=== PATIENT | female | born 1930 | race Caucasian/White ===

== ENCOUNTER 2020-07-28 11:12 | Inpatient (IN) | payer OTHER ==
[2020-07-28] MEDS ORDERED: LACTATED RINGERS SOLUTION 1000 ML INFUS.BAG IV ONE ×3 (12:01→14:26)
[2020-07-28] MEDS ORDERED: ACETAMINOPHEN 1000 MG/100 ML VIAL (NON FORMULARY) IVPB ONE (12:01)
[2020-07-28] MEDS ORDERED: ACETAMINOPHEN INJECTION 100 ML IVPB ONE (12:19)
[2020-07-28 12:35] LABS: BASO % 0.3 % (0-2.0); HEMATOCRIT 24.1 % (32.4-45.2); HEMOGLOBIN 7.6 GM/dL (10.7-15.3); LYMPH % 2.9 % (8-40); MCH 29.5 pg (25.7-33.7); MCHC 31.4 g/dl (32.0-36.0); MEAN CELL VOLUME 93.9 fl (80-96); MEAN PLT VOLUME 8.2 fl (7.5-11.1); MONO % 3.1 % (3.8-10.2); NEUT % 93.7 % (42.8-82.8); PLATELET COUNT 248 K/MM3 (134-434); RBC 2.57 M/mm3 (3.60-5.2); RDW 13.9 % (11.6-15.6); WHITE BLOOD COUNT 25.1 K/mm3 (4.0-10.0)
[2020-07-28 12:38] LABS: EPI CELLS 7 /uL (0-25.1); HYALINE CASTS 1 /uL (0-3.1); PH,URINE 7.5 (5.0-8.0); URINE APPEARANCE CLOUDY; URINE BACTERIA >9,000 /uL (0-1359); URINE BILIRUBIN NEGATIVE (NEGATIVE); URINE COLOR YELLOW; URINE GLUCOSE (UA) NEGATIVE (NEGATIVE); URINE KETONE NEGATIVE (NEGATIVE); URINE LEUK ESTERASE 2+ (NEGATIVE); URINE NITRITE NEGATIVE (NEGATIVE); URINE PROTEIN TRACE (NEGATIVE); URINE RBC 8 /uL (0-23.9); URINE WBC 376 /uL (0-25.8)
[2020-07-28 12:42] LABS: INR 1.13 (0.83-1.09); PROTHROMBIN TIME (PATIENT) 13.8 SEC (9.7-13.0)
[2020-07-28 12:45] LABS: ACTIVATED PTT 31.1 SECONDS (25.2-36.5)
[2020-07-28 12:50] LABS: POTASSIUM 5.1 mmol/L (3.5-5.1)
[2020-07-28 12:52] LABS: BLOOD UREA NITROGEN 40.4 mg/dL (7-18); CALCIUM 7.4 mg/dL (8.5-10.1)
[2020-07-28 12:56] LABS: CREATININE 1.9 mg/dL (0.55-1.3)
[2020-07-28 12:57] LABS: BILIRUBIN,TOTAL 1.5 mg/dL (0.2-1); TOT PROT 5.8 g/dl (6.4-8.2)
[2020-07-28] MEDS ORDERED: PIPERACILLIN/TAZOB 4.5 GM 4.5 GM in DEXTROSE 5%-WATER 100 ML IVPB ONE (13:11)
[2020-07-28] MEDS ORDERED: VANCOMYCIN 1 GM in D5W (PRE-DOCKED) 1,000 MG/250 ML IVPB ONE (13:13)
[2020-07-28] MEDS ORDERED: AZITHROMYCIN IVPB 500 MG in DEXTROSE 5%-WATER - 250 ML IVPB ONE (13:13)
[2020-07-28] MEDS ORDERED: PIPERACILLIN/TAZOB 4.5 GM 4.5 GM/100 ML BAG IVPB ONE (13:34)
[2020-07-28 13:46] LABS: ANISOCYTOSIS 0; MACROCYTOSIS 0; PLATELET ESTIMATE NORMAL
[2020-07-28] MEDS ORDERED: VANCOMYCIN 1 GRAM (PRE-DOCKED) 1,000 MG/250 ML BAG IVPB ONE (14:20)
[2020-07-28] MEDS ORDERED: AZITHROMYCIN IVPB 500 MG/250 ML BAG IVPB ONE (14:20)
[2020-07-28] MEDS ORDERED: VANCOMYCIN 2,000 MG in DEXTROSE 5%-WATER - 250 ML IVPB ONE (14:25)
[2020-07-28] MEDS ORDERED: VANCOMYCIN 500 MG VIAL (RESTRICTED TO ID ONLY) ONE (15:10)
[2020-07-28] MEDS ORDERED: VASOPRESSIN 20 UNITS/ML VIAL IV ONE ×2 (15:49→16:01)
[2020-07-28] MEDS: VASOPRESSIN 40 UNITS in SODIUM CHLORIDE 98 ML IVPB SCH (16:22)
[2020-07-28] MEDS ORDERED: TRIPLE LUMEN FLUSH 4 ML ML IVPUSH PRN (19:02)
[2020-07-29] MEDS ORDERED: PIPERACILLIN/TAZOBACTAM 2.25 GM VIAL IVPB ONE ×4 (04:16→20:09)
[2020-07-29] MEDS ORDERED: DEXTROSE 5%-WATER - 50 ML IVPB ONE ×4 (04:16→20:09)
[2020-07-29] MEDS: PIPERACILLIN/TAZOB 2.25 GM 2.25 GM in DEXTROSE 5%-WATER - 50 ML IVPB SCH ×4 (04:18→20:23)
[2020-07-29 04:23] LABS: BASO % 0.4 % (0-2.0); EOS % 0.5 % (0-4.5); HEMATOCRIT 21.1 % (32.4-45.2); LYMPH % 9.9 % (8-40); MCH 30.2 pg (25.7-33.7); MCHC 31.8 g/dl (32.0-36.0); MEAN PLT VOLUME 8.6 fl (7.5-11.1); MONO % 5.4 % (3.8-10.2); NEUT % 83.8 % (42.8-82.8); PLATELET COUNT 189 K/MM3 (134-434); RBC 2.22 M/mm3 (3.60-5.2); RDW 13.8 % (11.6-15.6); WHITE BLOOD COUNT 14.5 K/mm3 (4.0-10.0)
[2020-07-29 04:27] LABS: HEMOGLOBIN 6.7 GM/dL (10.7-15.3)
[2020-07-29 04:30] LABS: POTASSIUM 4.9 mmol/L (3.5-5.1)
[2020-07-29 04:32] LABS: CALCIUM 7.3 mg/dL (8.5-10.1)
[2020-07-29 04:33] LABS: ALBUMIN 1.7 g/dl (3.4-5.0); BLOOD UREA NITROGEN 34.2 mg/dL (7-18); MAGNESIUM 1.9 mg/dL (1.8-2.4)
[2020-07-29 04:36] LABS: CREATININE 1.6 mg/dL (0.55-1.3); PHOSPHOROUS 4.1 mg/dL (2.5-4.9)
[2020-07-29 04:37] LABS: BILIRUBIN,TOTAL 1.1 mg/dL (0.2-1)
[2020-07-29 04:38] LABS: TOT PROT 5.2 g/dl (6.4-8.2)
[2020-07-29] MEDS ORDERED: NOREPINEPHRINE BITARTRATE 8,000 MCG/500 ML BAG IVPB ONE (04:47)
[2020-07-29] MEDS ORDERED: NOREPINEPHRINE D5W PREMIX 16,000 MCG/500 ML BAG IVPB ONE (04:49)
[2020-07-29] MEDS: SODIUM CHLORIDE 1,000 ML IV SCH (08:52)
[2020-07-29] MEDS: PANTOPRAZOLE SODIUM 40 MG VIAL IVPUSH SCH (09:28)
[2020-07-29] MEDS: ACETAMINOPHEN 325 MG TABLET (FP) PO PRN ×2 (10:31→17:19)
[2020-07-29] MEDS ORDERED: SODIUM CHLORIDE 500 ML IV STA (11:56)
[2020-07-29] MEDS: NOREPINEPHRINE BITARTRATE 16,000 MCG in SODIUM CHLORIDE 484 ML IV SCH (20:04)
[2020-07-29] MEDS: VASOPRESSIN 40 UNITS in SODIUM CHLORIDE 98 ML IVPB SCH (20:05)
[2020-07-29 20:59] LABS: BASO % 0.5 % (0-2.0); EOS % 1.7 % (0-4.5); HEMATOCRIT 26.2 % (32.4-45.2); HEMOGLOBIN 8.2 GM/dL (10.7-15.3); LYMPH % 12.9 % (8-40); MCH 29.6 pg (25.7-33.7); MCHC 31.4 g/dl (32.0-36.0); MEAN CELL VOLUME 94.3 fl (80-96); MONO % 7.4 % (3.8-10.2); NEUT % 77.5 % (42.8-82.8); PLATELET COUNT 196 K/MM3 (134-434); RBC 2.78 M/mm3 (3.60-5.2); RDW 15.1 % (11.6-15.6); WHITE BLOOD COUNT 12.8 K/mm3 (4.0-10.0)
[2020-07-30] MEDS ORDERED: DEXTROSE 5%-WATER - 50 ML IVPB ONE ×3 (00:22→14:34)
[2020-07-30] MEDS ORDERED: PIPERACILLIN/TAZOBACTAM 2.25 GM VIAL IVPB ONE ×3 (00:22→14:34)
[2020-07-30] MEDS: PIPERACILLIN/TAZOB 2.25 GM 2.25 GM in DEXTROSE 5%-WATER - 50 ML IVPB SCH ×3 (03:00→14:36)
[2020-07-30 07:53] LABS: BASO % 0.5 % (0-2.0); EOS % 1.8 % (0-4.5); HEMATOCRIT 24.6 % (32.4-45.2); HEMOGLOBIN 8.1 GM/dL (10.7-15.3); LYMPH % 12.3 % (8-40); MCH 30.4 pg (25.7-33.7); MCHC 32.9 g/dl (32.0-36.0); MEAN CELL VOLUME 92.4 fl (80-96); MEAN PLT VOLUME 8.8 fl (7.5-11.1); MONO % 6.4 % (3.8-10.2); PLATELET COUNT 206 K/MM3 (134-434); RBC 2.66 M/mm3 (3.60-5.2); RDW 15.2 % (11.6-15.6); WHITE BLOOD COUNT 12.8 K/mm3 (4.0-10.0)
[2020-07-30 07:56] LABS: INR 1.11 (0.83-1.09); PROTHROMBIN TIME (PATIENT) 13.4 SEC (9.7-13.0)
[2020-07-30 07:57] LABS: ACTIVATED PTT 29.6 SECONDS (25.2-36.5)
[2020-07-30 08:10] LABS: POTASSIUM 4.2 mmol/L (3.5-5.1)
[2020-07-30 08:15] LABS: ALBUMIN 1.8 g/dl (3.4-5.0); BLOOD UREA NITROGEN 27.9 mg/dL (7-18); CALCIUM 7.3 mg/dL (8.5-10.1)
[2020-07-30 08:18] LABS: CREATININE 1.3 mg/dL (0.55-1.3)
[2020-07-30 08:20] LABS: TOT PROT 5.4 g/dl (6.4-8.2)
[2020-07-30] MEDS: ACETAMINOPHEN 325 MG TABLET (FP) PO PRN ×2 (08:42→17:06)
[2020-07-30] MEDS: PANTOPRAZOLE SODIUM 40 MG VIAL IVPUSH SCH (10:50)
[2020-07-30 13:14] VITALS: BMI 34.1
[2020-07-30] MEDS ORDERED: SODIUM CHLORIDE 1,000 ML IV SCH (13:38)
[2020-07-30] MEDS: ERTAPENEM SODIUM 1 GM in SODIUM CHLORIDE 50 ML IVPB SCH (17:06)
[2020-07-30] MEDS: NOREPINEPHRINE BITARTRATE 16,000 MCG in SODIUM CHLORIDE 484 ML IV SCH (21:09)
[2020-07-30] MEDS: VASOPRESSIN 40 UNITS in SODIUM CHLORIDE 98 ML IVPB SCH (21:09)
[2020-07-30] MEDS: SODIUM CHLORIDE 1,000 ML IV SCH (21:09)
[2020-07-31 07:16] LABS: BASO % 0.7 % (0-2.0); HEMATOCRIT 29.7 % (32.4-45.2); HEMOGLOBIN 9.6 GM/dL (10.7-15.3); LYMPH % 9.7 % (8-40); MCH 29.8 pg (25.7-33.7); MCHC 32.4 g/dl (32.0-36.0); MEAN PLT VOLUME 8.4 fl (7.5-11.1); MONO % 5.8 % (3.8-10.2); NEUT % 82.8 % (42.8-82.8); PLATELET COUNT 289 K/MM3 (134-434); RBC 3.22 M/mm3 (3.60-5.2); RDW 15.1 % (11.6-15.6); WHITE BLOOD COUNT 11.8 K/mm3 (4.0-10.0)
[2020-07-31 07:21] LABS: POTASSIUM 3.8 mmol/L (3.5-5.1)
[2020-07-31 07:25] LABS: ALBUMIN 2.3 g/dl (3.4-5.0); BLOOD UREA NITROGEN 19.5 mg/dL (7-18); CALCIUM 7.6 mg/dL (8.5-10.1); MAGNESIUM 1.9 mg/dL (1.8-2.4)
[2020-07-31 07:28] LABS: CREATININE 1.2 mg/dL (0.55-1.3); PHOSPHOROUS 2.9 mg/dL (2.5-4.9)
[2020-07-31 07:30] LABS: TOT PROT 6.2 g/dl (6.4-8.2)
[2020-07-31] MEDS ORDERED: PT OWN MED DRAWER 7, Y5N ONE ×2 (09:37→17:07)
[2020-07-31] MEDS: ERTAPENEM SODIUM 1 GM in SODIUM CHLORIDE 50 ML IVPB SCH (09:39)
[2020-07-31] MEDS: ACETAMINOPHEN 325 MG TABLET (FP) PO PRN (09:41)
[2020-07-31] MEDS: PANTOPRAZOLE SODIUM 40 MG VIAL IVPUSH SCH (09:43)
[2020-07-31 10:59] LABS: ANISOCYTOSIS 0; MACROCYTOSIS 0; PLATELET ESTIMATE NORMAL; ROULEAU 1+
[2020-07-31] MEDS: NOREPINEPHRINE BITARTRATE 16,000 MCG in SODIUM CHLORIDE 484 ML IV SCH (16:05)
[2020-07-31] MEDS: IRON POLYSACCHARIDES 150 MG CAPSULE PO SCH (18:33)
[2020-07-31] MEDS: SENNOSIDES 8.6MG TABLET (FP) PO SCH (21:02)
[2020-08-01] MEDS: LEVOTHYROXINE NA 25 MCG TABLET (FP) PO SCH (06:00)
[2020-08-01] MEDS: ACETAMINOPHEN 325 MG TABLET (FP) PO PRN ×2 (06:00→20:17)
[2020-08-01 08:31] LABS: POTASSIUM 4.4 mmol/L (3.5-5.1)
[2020-08-01 08:35] LABS: CALCIUM 7.8 mg/dL (8.5-10.1)
[2020-08-01 08:36] LABS: BASO % 0.7 % (0-2.0); BLOOD UREA NITROGEN 13.2 mg/dL (7-18); EOS % 3.5 % (0-4.5); HEMATOCRIT 29.2 % (32.4-45.2); HEMOGLOBIN 9.6 GM/dL (10.7-15.3); LYMPH % 17.4 % (8-40); MCH 30.6 pg (25.7-33.7); MCHC 32.9 g/dl (32.0-36.0); MEAN CELL VOLUME 93.1 fl (80-96); MEAN PLT VOLUME 8.6 fl (7.5-11.1); MONO % 9.3 % (3.8-10.2); NEUT % 69.1 % (42.8-82.8); PLATELET COUNT 321 K/MM3 (134-434); RBC 3.14 M/mm3 (3.60-5.2); RDW 14.7 % (11.6-15.6); WHITE BLOOD COUNT 8.7 K/mm3 (4.0-10.0)
[2020-08-01 08:40] LABS: TOT PROT 5.7 g/dl (6.4-8.2)
[2020-08-01] MEDS: PANTOPRAZOLE SODIUM 40 MG VIAL IVPUSH SCH (09:17)
[2020-08-01] MEDS: IRON POLYSACCHARIDES 150 MG CAPSULE PO SCH (09:17)
[2020-08-01] MEDS ORDERED: ENOXAPARIN NA (PORCINE) 40 MG/0.4 ML DISP.SYRIN SQ SCH (10:00)
[2020-08-01 11:03] LABS: ANISOCYTOSIS 1+; MACROCYTOSIS 0; OVALOCYTE 1+; PLATELET ESTIMATE NORMAL
[2020-08-01] MEDS: ERTAPENEM SODIUM 1 GM in SODIUM CHLORIDE 50 ML IVPB SCH (12:09)
[2020-08-01] MEDS: ENOXAPARIN NA (PORCINE) 100 MG/1 ML DISP.SYRIN SQ SCH (20:17)
[2020-08-01] MEDS: SENNOSIDES 8.6MG TABLET (FP) PO SCH (21:10)
[2020-08-02] MEDS: LEVOTHYROXINE NA 25 MCG TABLET (FP) PO SCH (06:11)
[2020-08-02] MEDS: IRON POLYSACCHARIDES 150 MG CAPSULE PO SCH (09:46)
[2020-08-02] MEDS: ENOXAPARIN NA (PORCINE) 100 MG/1 ML DISP.SYRIN SQ SCH ×2 (09:46→21:48)
[2020-08-02] MEDS: PANTOPRAZOLE SODIUM 40 MG VIAL IVPUSH SCH (09:46)
[2020-08-02] MEDS: ERTAPENEM SODIUM 1 GM in SODIUM CHLORIDE 50 ML IVPB SCH (09:47)
[2020-08-02 10:08] LABS: BASO % 0.7 % (0-2.0); EOS % 3.1 % (0-4.5); HEMATOCRIT 29.7 % (32.4-45.2); HEMOGLOBIN 9.8 GM/dL (10.7-15.3); LYMPH % 17.3 % (8-40); MCH 30.8 pg (25.7-33.7); MCHC 33.2 g/dl (32.0-36.0); MEAN CELL VOLUME 92.9 fl (80-96); MONO % 6.1 % (3.8-10.2); NEUT % 72.8 % (42.8-82.8); PLATELET COUNT 416 K/MM3 (134-434); RDW 14.4 % (11.6-15.6); WHITE BLOOD COUNT 8.9 K/mm3 (4.0-10.0)
[2020-08-02 10:31] LABS: CALCIUM 8.2 mg/dL (8.5-10.1)
[2020-08-02 10:32] LABS: ALBUMIN 2.3 g/dl (3.4-5.0)
[2020-08-02 10:35] LABS: CREATININE 1.1 mg/dL (0.55-1.3)
[2020-08-02 10:36] LABS: BILIRUBIN,TOTAL 1.3 mg/dL (0.2-1)
[2020-08-02 10:37] LABS: TOT PROT 6.2 g/dl (6.4-8.2)
[2020-08-02 11:35] LABS: ANISOCYTOSIS 1+; MACROCYTOSIS 0; PLATELET ESTIMATE NORMAL
[2020-08-02] MEDS: SENNOSIDES 8.6MG TABLET (FP) PO SCH (21:49)
[2020-08-02] MEDS: ACETAMINOPHEN 325 MG TABLET (FP) PO PRN (21:51)
[2020-08-03] MEDS: LEVOTHYROXINE NA 25 MCG TABLET (FP) PO SCH (06:24)
[2020-08-03] MEDS: ENOXAPARIN NA (PORCINE) 100 MG/1 ML DISP.SYRIN SQ SCH ×2 (08:42→21:23)
[2020-08-03 09:05] LABS: BASO % 1.1 % (0-2.0); EOS % 3.3 % (0-4.5); HEMATOCRIT 30.5 % (32.4-45.2); HEMOGLOBIN 9.9 GM/dL (10.7-15.3); LYMPH % 17.2 % (8-40); MCH 30.6 pg (25.7-33.7); MCHC 32.5 g/dl (32.0-36.0); MEAN PLT VOLUME 7.9 fl (7.5-11.1); MONO % 6.6 % (3.8-10.2); NEUT % 71.8 % (42.8-82.8); PLATELET COUNT 449 K/MM3 (134-434); RBC 3.25 M/mm3 (3.60-5.2); WHITE BLOOD COUNT 8.8 K/mm3 (4.0-10.0)
[2020-08-03 09:25] LABS: POTASSIUM 4.1 mmol/L (3.5-5.1)
[2020-08-03 09:29] LABS: ALBUMIN 2.2 g/dl (3.4-5.0); CALCIUM 7.7 mg/dL (8.5-10.1)
[2020-08-03 09:34] LABS: BILIRUBIN,TOTAL 0.7 mg/dL (0.2-1); TOT PROT 6.3 g/dl (6.4-8.2)
[2020-08-03] MEDS ORDERED: PT OWN MED DRAWER 7, Y5N ONE (09:47)
[2020-08-03] MEDS: IRON POLYSACCHARIDES 150 MG CAPSULE PO SCH (09:50)
[2020-08-03] MEDS: ERTAPENEM SODIUM 1 GM in SODIUM CHLORIDE 50 ML IVPB SCH (09:51)
[2020-08-03] MEDS: PANTOPRAZOLE SODIUM 40 MG VIAL IVPUSH SCH (09:52)
[2020-08-03] MEDS: ACETAMINOPHEN 325 MG TABLET (FP) PO PRN ×2 (16:29→21:29)
[2020-08-03] MEDS: SENNOSIDES 8.6MG TABLET (FP) PO SCH (21:23)
[2020-08-04] MEDS: LEVOTHYROXINE NA 25 MCG TABLET (FP) PO SCH (06:12)
[2020-08-04] MEDS: ACETAMINOPHEN 325 MG TABLET (FP) PO PRN ×3 (07:44→21:59)
[2020-08-04] MEDS: ENOXAPARIN NA (PORCINE) 100 MG/1 ML DISP.SYRIN SQ SCH ×2 (07:44→21:59)
[2020-08-04] MEDS ORDERED: PT OWN MED DRAWER 7, Y5N ONE (09:43)
[2020-08-04] MEDS: IRON POLYSACCHARIDES 150 MG CAPSULE PO SCH (09:46)
[2020-08-04] MEDS: ERTAPENEM SODIUM 1 GM in SODIUM CHLORIDE 50 ML IVPB SCH (09:47)
[2020-08-04] MEDS: PANTOPRAZOLE SODIUM 40 MG VIAL IVPUSH SCH (09:49)
[2020-08-04] MEDS: SENNOSIDES 8.6MG TABLET (FP) PO SCH (21:59)
[2020-08-05] MEDS: LEVOTHYROXINE NA 25 MCG TABLET (FP) PO SCH (06:21)
[2020-08-05] MEDS: ENOXAPARIN NA (PORCINE) 100 MG/1 ML DISP.SYRIN SQ SCH (08:17)
[2020-08-05] MEDS ORDERED: PT OWN MED DRAWER 7, Y5N ONE (09:58)
[2020-08-05] MEDS: ERTAPENEM SODIUM 1 GM in SODIUM CHLORIDE 50 ML IVPB SCH (10:00)
[2020-08-05] MEDS: IRON POLYSACCHARIDES 150 MG CAPSULE PO SCH (10:00)
[2020-08-05] MEDS: ACETAMINOPHEN 325 MG TABLET (FP) PO PRN ×2 (10:43→20:25)
[2020-08-05] MEDS: PANTOPRAZOLE 40 MG TABLET PO SCH (10:43)
[2020-08-05] MEDS: APIXABAN 5 MG TABLET PO SCH (22:18)
[2020-08-05] MEDS: SENNOSIDES 8.6MG TABLET (FP) PO SCH (22:18)
[2020-08-06] MEDS: ACETAMINOPHEN 325 MG TABLET (FP) PO PRN ×3 (06:27→21:20)
[2020-08-06] MEDS: LEVOTHYROXINE NA 25 MCG TABLET (FP) PO SCH (06:27)
[2020-08-06] MEDS ORDERED: PT OWN MED DRAWER 7, Y5N ONE (09:59)
[2020-08-06] MEDS: ERTAPENEM SODIUM 1 GM in SODIUM CHLORIDE 50 ML IVPB SCH (10:04)
[2020-08-06] MEDS: APIXABAN 5 MG TABLET PO SCH ×2 (10:04→21:22)
[2020-08-06] MEDS: PANTOPRAZOLE 40 MG TABLET PO SCH (10:04)
[2020-08-06] MEDS: IRON POLYSACCHARIDES 150 MG CAPSULE PO SCH (10:04)
[2020-08-06] MEDS: SENNOSIDES 8.6MG TABLET (FP) PO SCH (21:20)
[2020-08-07] MEDS ORDERED: LORazepam 2 MG/ML SDV VIAL IVPB ONE (00:21)
[2020-08-07] MEDS: LEVOTHYROXINE NA 25 MCG TABLET (FP) PO SCH (06:03)
[2020-08-07] MEDS ORDERED: PT OWN MED DRAWER 7, Y5N ONE (08:52)
[2020-08-07] MEDS: ERTAPENEM SODIUM 1 GM in SODIUM CHLORIDE 50 ML IVPB SCH (09:28)
[2020-08-07] MEDS: PANTOPRAZOLE 40 MG TABLET PO SCH (09:28)
[2020-08-07] MEDS: APIXABAN 5 MG TABLET PO SCH (09:28)
[2020-08-07] MEDS: IRON POLYSACCHARIDES 150 MG CAPSULE PO SCH (09:28)
[2020-08-07 12:18] LABS: CALCIUM 8.2 mg/dL (8.5-10.1); POTASSIUM 3.6 mmol/L (3.5-5.1)
[2020-08-07 12:19] LABS: BLOOD UREA NITROGEN 12.3 mg/dL (7-18)
[2020-08-07 12:22] LABS: CREATININE 0.9 mg/dL (0.55-1.3)
[2020-08-07 16:10] VITALS: BP 137/67; PULSE 61; TEMP 97.4
[2020-08-07] MEDS: ACETAMINOPHEN 325 MG TABLET (FP) PO PRN (16:45)
[2020-08-12] MEDS ORDERED: APIXABAN 5 MG TABLET PO SCH (22:00)
== END 2020-08-07 19:34 | disposition home health service (06) | DRG 871 ==
LOC: JER 11:12 → JERBED 16:52 → JICU 07-29 00:27 → J8W 07-31 15:27
PROVIDERS: ADMIT Family Medicine; ATTEND Family Medicine
PROC: 05HM33Z Insertion of Infusion Device into Right Internal Jugular Vein, Percutaneous Approach (ICD-10-PCS; principal; 2020-07-28)
DX: A41.50 Gram-negative sepsis, unspecified (principal); R65.21 Severe sepsis with septic shock; N39.0 Urinary tract infection, site not specified; N17.9 Acute kidney failure, unspecified; I24.8 Other forms of acute ischemic heart disease; D62 Acute posthemorrhagic anemia; I82.442 Acute embolism and thrombosis of left tibial vein; E87.1 Hypo-osmolality and hyponatremia; R00.0 Tachycardia, unspecified; D72.829 Elevated white blood cell count, unspecified; I10 Essential (primary) hypertension; E66.9 Obesity, unspecified; Z68.34 Body mass index [BMI] 34.0-34.9, adult; E86.1 Hypovolemia; K21.9 Gastro-esophageal reflux disease without esophagitis; E03.9 Hypothyroidism, unspecified; R79.89 Other specified abnormal findings of blood chemistry; B96.1 Klebsiella pneumoniae [K. pneumoniae] as the cause of diseases classified elsewhere; Z96.619 Presence of unspecified artificial shoulder joint
CPT/HCPCS: 36415; 36430; 71045-TC-FY; 71275-TC; 76705-TC; 76775-TC; 80048; 80053; 81003; 82272; 82550; 82553; 82607; 82728; 82962; 83540; 83550; 83605; 83735; 84100; 84439; 84443; 84484; 85025; 85027; 85379; 85610; 85651; 85730; 86140; 86850; 86900; 86901; 86922; 87040; 87086; 87186; 93005; 93010; 93306-TC; 93970-TC; 93971; 97116-GP; 97161-GP; 99291; C9803; E0186; J0131; P9058; Q9967; U0003

== ENCOUNTER 2021-02-26 11:38 | Emergency (ER) | payer OTHER ==
[2021-02-26 11:50] VITALS: TEMP 98.2; BMI 25.7
[2021-02-26] MEDS ORDERED: SODIUM PHOSPHATE/NA BIPHOS 133 ML ENEMA PR ONE ×2 (14:15→20:52)
[2021-02-26 15:39] LABS: EPI CELLS 34 /uL (0-25.1); HYALINE CASTS 3 /uL (0-3.1); PH,URINE 6.5 (5.0-8.0); URINE APPEARANCE TURBID; URINE BACTERIA 5789 /uL (0-1359); URINE BILIRUBIN NEGATIVE (NEGATIVE); URINE COLOR YELLOW; URINE GLUCOSE (UA) NEGATIVE (NEGATIVE); URINE KETONE NEGATIVE (NEGATIVE); URINE LEUK ESTERASE 3+ (NEGATIVE); URINE NITRITE NEGATIVE (NEGATIVE); URINE PROTEIN 1+ (NEGATIVE); URINE RBC 103 /uL (0-23.9); URINE UROBILINOGEN 0.2 mg/dL (0.2-1.0); URINE WBC 11307 /uL (0-25.8)
[2021-02-26 15:44] LABS: BASO % 0.7 % (0-2.0); EOS % 1.2 % (0-4.5); HEMATOCRIT 38.6 % (32.4-45.2); HEMOGLOBIN 12.5 GM/dL (10.7-15.3); LYMPH % 33.2 % (8-40); MCHC 32.5 g/dl (32.0-36.0); MEAN CELL VOLUME 92.3 fl (80-96); MEAN PLT VOLUME 7.9 fl (7.5-11.1); MONO % 6.3 % (3.8-10.2); NEUT % 58.6 % (42.8-82.8); PLATELET COUNT 247 10^3/uL (134-434); RBC 4.18 M/mm3 (3.60-5.2); RDW 13.6 % (11.6-15.6)
[2021-02-26 15:59] LABS: ALBUMIN 3.4 g/dl (3.4-5.0); BLOOD UREA NITROGEN 12.7 mg/dL (7-18); CALCIUM 8.9 mg/dL (8.5-10.1)
[2021-02-26 16:00] LABS: MAGNESIUM 2.2 mg/dL (1.8-2.4)
[2021-02-26 16:03] LABS: CREATININE 1.2 mg/dL (0.55-1.3)
[2021-02-26 16:04] LABS: BILIRUBIN,TOTAL 0.4 mg/dL (0.2-1); TOT PROT 7.9 g/dl (6.4-8.2)
[2021-02-26] MEDS ORDERED: CEFTRIAXONE 1,000 MG in DEXTROSE 5%-WATER - 50 ML IVPB ONE (16:32)
[2021-02-26] MEDS ORDERED: CEFTRIAXONE 1 GM/50 ML BAG ONE (17:00)
[2021-02-26 17:10] VITALS: BP 150/84; PULSE 67
== END 2021-02-26 22:02 | disposition home or self-care (01) ==
LOC: JER 11:38
DX: N39.0 Urinary tract infection, site not specified (principal); K59.00 Constipation, unspecified
CPT/HCPCS: 36415; 74177-TC; 80053; 81003; 82550; 82553; 83735; 84443; 84484; 85025; 87086; 87186; 93005; 93010; 99285-25; Q9967